=== PATIENT | male | born 1955 | race Caucasian/White ===

== ENCOUNTER 2021-08-19 11:13 | Outpatient (CLI) | payer BC ==
[2021-08-19 20:36] LABS: SARS-CoV-2 PCR by NAA Not Detected (NotDetected)
== END 2021-08-19 11:14 | disposition home or self-care (01) ==
LOC: CSHLAB 11:13
PROVIDERS: ATTEND Internal Medicine Gastroenterology
DX: Z20.822 Contact with and (suspected) exposure to COVID-19 (principal); Z12.11 Encounter for screening for malignant neoplasm of colon
CPT/HCPCS: U0003; U0005

== ENCOUNTER 2021-08-24 08:49 | Day surgery (SDC) | payer BC ==
[2021-08-21 11:15] VITALS: BMI 24.3
[2021-08-24] MEDS ORDERED: Lidocaine 1% MPF 2 ML VIAL ONE (09:51)
[2021-08-24] MEDS ORDERED: PROPOFOL 20 ML ONE ×3 (10:57→11:31)
[2021-08-24] MEDS ORDERED: PHENYLEPHRINE-NS 100 MCG/ML 10 ML SYRINGE ONE (11:06)
== END 2021-08-24 12:03 | disposition home or self-care (01) ==
LOC: CSHSDC 08:49
PROVIDERS: ATTEND Internal Medicine Gastroenterology
PROC: 0DJD8ZZ Inspection of Lower Intestinal Tract, Via Natural or Artificial Opening Endoscopic (ICD-10-PCS; principal; 2021-08-24)
DX: Z12.11 Encounter for screening for malignant neoplasm of colon (principal); K64.9 Unspecified hemorrhoids; Q43.8 Other specified congenital malformations of intestine; Z85.038 Personal history of other malignant neoplasm of large intestine; Z86.010 Personal history of colon polyps; Z80.0 Family history of malignant neoplasm of digestive organs; Z88.0 Allergy status to penicillin; Z88.8 Allergy status to other drugs, medicaments and biological substances
CPT/HCPCS: J2704